=== PATIENT | female | born 1935 | race Caucasian/White ===

== ENCOUNTER 2016-05-11 20:18 | Emergency (ER) | payer OTHER ==
[~2016-05-11] VITALS: Ht 157.5 cm; Wt 59.5 kg
[~2016-05-11 20:18] MED LIST: ACET1TAB40 PO; ALBU8.5H5 INH; ERYT1OIN6 RIGHT EYE; GABA100C14 PO; GENT5DRO28 RIGHT EYE; IBUP-1542 PO; LEVO50TA64; LOSA50TA6 PO; MTF1000T PO; OSLT75C PO; TRAM50TA2 PO; TYL500 PO; ZOC10 PO
[2016-05-11 20:55] VITALS: Ht 157.5 cm; Wt 59.5 kg
[2016-05-11] MEDS ORDERED: ACETAMINOPHEN 500 MG TAB PO STA (22:06)
--- NOTE | 2016-05-11 23:28 | ERD ---
ER Documentation Chief Complaint Date/Time DATE: 05/11/16 TIME: 23:26 Chief Complaint cough x 2 weeks HPI Patient is an 81-year-old female with a history of diabetes, hypertension, hypothyroidism, high cholesterol and arthritis who presents to the ED with cough for 2 weeks. Denies hemoptysis, night sweats, fever or chills. Complains of a productive cough. Has been taking Tylenol and a [place] cough syrup with minimal relief. Denies chest pain, shortness of breath or difficulty breathing. Denies abdominal pain, nausea, vomiting or diarrhea. Denies headache or dizziness. ROS All systems reviewed and are negative except as per history of present illness. Medications Home Meds Active Scripts Benzonatate* (Tessalon Perle*) 100 Mg Capsule, 100 MG PO Q8H Y for COUGH for 14 Days, CAP Prov:SAM SALMERON PA-C 05/11/16 Azithromycin* (Zithromax*) 250 Mg Tablet, 250 MG PO .ZPACK DIRECTED, #6 TAB TAKE 500 MG (2 TABS) THE FIRST DAY THEN 250 MG (1 TAB) DAYS 2-5 Prov:SAM SALMERON PA-C 05/11/16 Erythromycin (Erythromycin Opth) 3.5 Gm Oint..gm., 1 APPLIC RIGHT EYE QID for 7 Days, #1 TUB Prov:KRISTAN LEONARD MD 10/24/15 Acetaminophen-Codeine* (Acetaminophen-Cod #3*) 300-30 Mg Tab, 1 TAB PO Q4H Y for PAIN, #12 TAB Prov:KRISTAN LEONARD MD 10/24/15 Tramadol HCl (Tramadol HCl) 50 Mg Tablet, 50 MG PO Q4 Y for PAIN, #20 TAB Prov:KRISTAN LEONARD MD 10/18/15 Gentamicin Sulfate* (Gentamicin Sulfate* Ophth) 0.3% - 5 Ml Drops, 1 DROP RIGHT EYE Q4 for 7 Days, EA Prov:KRISTAN LEONARD MD 10/18/15 Oseltamivir Phosphate* (Tamiflu*) 75 Mg Capsule, 75 MG PO BID for 5 Days, CAP Prov:RICH FLOR MD 02/05/15 Albuterol Sulfate* (Albuterol Sulfate* HFA) 8.5 Gm Hfa.aer.ad, 1-2 PUFF INH Q4 Y for SHORTNESS OF BREATH, #1 EA Prov:RICH FLOR MD 02/05/15 Ibuprofen* (Ibuprofen*) 600 Mg Tablet, 400 MG PO TID for PAIN, #30 TAB Prov:RICH FLOR MD 02/05/15 Reported Medications Acetaminophen* (Tylenol*) 500 Mg Tab, 500 MG PO Q4H Y for MILD PAIN LEVEL 1-3, TAB 10/23/13 Losartan Potassium* (Losartan Potassium*) 50 Mg Tablet, 50 MG PO DAILY, TAB 10/23/13 Metformin* (Glucophage*) 1,000 Mg Tablet, 1000 MG PO BID 04/08/12 Gabapentin* (Gabapentin*) 100 Mg Capsule, 100 MG PO BID 04/08/12 Simvastatin (Simvastatin) 10 Mg Tablet, 10 MG PO 12/19/11 Levothyroxine Sodium (Levothroid) 50 Mcg Tablet 08/03/09 Allergies Allergies: Coded Allergies: Penicillins (Verified Allergy, Mild, 04/08/12) PMhx/Soc History of Surgery: Yes (bilateral eyes cataract) Anesthesia Reaction: No Hx Neurological Disorder: No Hx Respiratory Disorders: No Hx Psychiatric Problems: No Hx Alcohol Use: No Hx Substance Use: No Hx Tobacco Use: No Smoking Status: Never smoker FmHx Family History: No coronary disease, No diabetes, No other Physical Exam Vitals Vital Signs Date Time Temp Pulse Resp B/P Pulse Ox O2 Delivery O2 Flow Rate FiO2 05/11/16 20:55 97.5 83 20 167/72 96 Physical Exam GENERAL: Well-developed, well-nourished female. Appears in no acute distress. HEAD: Normocephalic, atraumatic. EYES: Pupils are equally reactive bilaterally. EOMs grossly intact. No conjunctival erythema. ENT: Moist mucous membranes. No uvula deviation. No kissing tonsils. No exudates. NECK: Supple. No lymphadenopathy or thyromegaly. No meningismus. negative kernig. negative brudinski. No retractions or nasal flaring. Patient speaking in full sentences LUNG: Clear to auscultation bilaterally. No rhonchi, wheezing, rales or coarse breath sounds. HEART: Regular rate and rhythm. No murmurs, rubs or gallops. ABDOMEN: No scars, ecchymosis or rashes noted. Soft, nontender, and nondistended. Positive bowel sounds in all four quadrants. No rebound tenderness , no guarding. (-) McBurneys point tenderness. No CVA tenderness. BACK: No midline tenderness. Extremities: Equal pulses bilaterally. No peripheral clubbing, cyanosis or edema. No unilateral leg swelling. NEUROLOGIC: Alert and oriented. Moving all four extremities. 5/5 strength in all extremities. Normal speech. Steady gait. SKIN: Normal color. Warm and dry. No rashes or lesions. Capillary refill < 2 seconds Results 24 hrs Current Medications Medications (Trade) Dose Ordered Sig/Scot Route PRN Reason Start Time Stop Time Status Last Admin Dose Admin Acetaminophen (Tylenol Tab) 500 mg ONCE STAT PO 05/11/16 22:06 05/11/16 22:07 DC 05/11/16 22:13 Procedures/MDM ER COURSE: I kept the patient and/or family informed of laboratory and diagnostic imaging results throughout the emergency room course. EKG, MONITORS, & DIAGNOSTIC IMAGING: [place] [id number] Radiology Main Line: [phone] DIAGNOSTIC IMAGING REPORT Patient: BOWEN ADAMS : 1935 Age: 81 Sex: F MR #: [id number] DOS: 05/11/162205 Ordering MD: SAM SALMERON PA-C Location: [facility] Room/Bed: PROCEDURE: XR Chest. CLINICAL INDICATION: Cough and fever TECHNIQUE: AP Portable chest. COMPARISON: 02/05/2015 FINDINGS: Some mild patchy airspace opacities are seen bilaterally in the mid to lower lung zones. There is mild cardiomegaly. The osseous structures are unremarkable. IMPRESSION: Minimal patchy opacities within the lower lung zones possibly due to infection. RPTAT: HIKT .Korey Weinstein MD, Date Time Electronically viewed and signed by .Korey Weinstein MD, on 05/11/2016 23:29 .T/ CC: SAM SALMERON PA-C MEDICAL DECISION MAKING: This is a 81 year old female who presents with cough x 2 weeks. Vital signs were reviewed. Patient is afebrile. Patient is not hypoxic. Patient is not toxic or ill appearing. She likely has pneumonia. I have consulted with Dr. Garcia regarding her results and who has agreed with plan. Low suspicion forPE , pneumothorax, ACS, epiglottitis, obstruction, TB, pertussis, meningitis, sepsis. Patient does not show signs of respiratory distress. O2 sat is 96. And patient is afebrile. I will be sending the patient with Zithromax. I do not think patient needs to be admitted at this time or needs IV hydration. Low suspicion for ACS, PE, AAA, dissection, DVT DISCHARGE: At this time, patient is stable for discharge and outpatient management with no new complaints during the ER course. Patient was sent home with Zithromax and Mando Espinoza. Patient will be discharged home with instructions to recheck for new or worsening symptoms such as fever, nausea, weakness, LOC and to follow up with primary care in the next 1-2 days. Patient was advised to return to the ER for any new or worsening symptoms. Plan was discussed and patient and/ or family understands and agrees. Home instructions were given. Departure Diagnosis: Primary Impression: Cough Condition: Stable SAM SALMERON PA-C May 11, 2016 23:28
--- NOTE | 2016-05-11 23:29 | RADRPT ---
PROCEDURE: XR Chest. CLINICAL INDICATION: Cough and fever TECHNIQUE: AP Portable chest. COMPARISON: 02/05/2015 FINDINGS: Some mild patchy airspace opacities are seen bilaterally in the mid to lower lung zones. There is m ild cardiomegaly. The osseous structures are unremarkable. IMPRESSION: Minimal patchy opacities within the lower lung zones possibly due to infection. RPTAT: HIKT .Korey Weinstein MD, MD Date Time Electronically viewed and signed by .Korey Weinstein MD, on 05/11/2016 23:29 .T/
[2016-05-11] MEDS ORDERED: AZIT250T94 PO (23:38)
[2016-05-11] MEDS ORDERED: BENZ100C70 PO (23:41)
[2016-05-12 00:15] VITALS: BP 110/58; PULSE 78; RESP 18; TEMP 98.1
== END 2016-05-12 00:18 | disposition home or self-care (01) ==
LOC: FTE 20:18
DX: R05 Cough (principal); E11.9 Type 2 diabetes mellitus without complications; I10 Essential (primary) hypertension; E03.9 Hypothyroidism, unspecified; Z79.84 Long term (current) use of oral hypoglycemic drugs
CPT/HCPCS: 71010; Z7610

== ENCOUNTER 2016-11-19 11:42 | Inpatient (IN) | payer OTHER ==
[~2016-11-19] VITALS: Ht 152.4 cm; Wt 58.0 kg
[~2016-11-19 11:42] MED LIST changes: +AZIT250T94 PO; +BENZ100C70 PO
[2016-11-19] MEDS ORDERED: ASPIRIN 325 MG TAB PO STA (12:56)
[2016-11-19] MEDS ORDERED: NITROGLYCERIN 2% 1 GM OINT PKT TD STA (12:56)
[2016-11-19 13:13] LABS: BASOPHILS % 0.3 % (0.0-2.0); EOSINOPHILS # 0.1 10^3/ul (0.0-0.5); EOSINOPHILS % 0.8 % (0.0-7.0); HEMATOCRIT 35.8 % (37.0-47.0); HEMOGLOBIN 12.3 g/dl (12.0-16.0); LYMPHOCYTES # 2.1 10^3/ul (0.8-2.9); LYMPHOCYTES % 34.4 % (15.0-51.0); MEAN CORPUSCULAR HEMOGLOBIN 31.7 pg (29.0-33.0); MEAN CORPUSCULAR HGB CONC 34.4 g/dl (32.0-37.0); MEAN CORPUSCULAR VOLUME 92.3 fl (82.0-101.0); MEAN PLATELET VOLUME 9.5 fl (7.4-10.4); MONOCYTE # 0.4 10^3/ul (0.3-0.9); MONOCYTES % 6.2 % (0.0-11.0); NEUTROPHIL # 3.6 10^3/ul (1.6-7.5); NEUTROPHILS % 58.1 % (39.0-77.0); PLATELET COUNT 268 10^3/UL (140-415); RED BLOOD COUNT 3.88 10^6/ul (4.20-5.40); RED CELL DISTRIBUTION WIDTH 11.5 % (11.5-14.5); WHITE BLOOD COUNT 6.2 10^3/ul (4.8-10.8)
[2016-11-19] MEDS ORDERED: INSULIN REGULAR 10 ML INJ SC ONE (13:30)
[2016-11-19] MEDS ORDERED: INSULIN REGULAR, HUMAN 100 UNIT/1 ML 3ML VIAL SC ONE (13:30)
[2016-11-19] MEDS ORDERED: LOSA50TA6 PO (13:39)
[2016-11-19] MEDS ORDERED: LEVO50TA74 PO (13:39)
[2016-11-19] MEDS ORDERED: SIMV10TA PO (13:40)
[2016-11-19] MEDS ORDERED: ASPI-664 PO (13:40)
[2016-11-19] MEDS ORDERED: METF500T4 PO (13:40)
[2016-11-19 13:41] LABS: ALANINE AMINOTRANSFERASE 38 IU/L (13-69); ALBUMIN 4.1 g/dl (3.3-4.9); ALBUMIN/GLOBULIN RATIO 1.05; ALKALINE PHOSPHATASE 247 IU/L (42-121); ANION GAP 20 (8-16); ASPARTATE AMINO TRANSFERASE 23 IU/L (15-46); BILIRUBIN,INDIRECT 0.3 mg/dl (0-1.1); BILIRUBIN,TOTAL 0.3 mg/dl (0.2-1.3); BLOOD UREA NITROGEN 23 mg/dl (7-20); CALCIUM 9.8 mg/dl (8.4-10.2); CARBON DIOXIDE 28 mmol/L (21-31); CHLORIDE 94 mmol/L (97-110); CREATININE 0.71 mg/dl (0.44-1.00); POTASSIUM 4.6 mmol/L (3.5-5.1); SODIUM 137 mmol/L (135-144)
[2016-11-19] MEDS ORDERED: GLIM2TAB PO (13:41)
[2016-11-19] MEDS ORDERED: HYDR12.58 PO (13:41)
[2016-11-19] MEDS ORDERED: CALC-267 PO (13:42)
[2016-11-19 13:44] LABS: GLUCOSE 476 mg/dl (70-220)
[2016-11-19 13:49] LABS: B-TYPE NATRIURETIC PEPTIDE 274 PG/ML (0-450)
[2016-11-19 13:54] LABS: TROPONIN-I < 0.012 ng/ml (0.00-0.12)
--- NOTE | 2016-11-19 14:07 | ERA ---
ER Documentation Chief Complaint Date/Time DATE: 11/19/16 TIME: 14:03 Chief Complaint DIZZINESS X4 DAYS, CHEST PAIN TODAY, NO N/V, NO SOB HPI This is a 81-year-old female complains of one-week history of exertional angina described as a chest pressure with shortness of breath and dizziness. She says when she walks starting to get more frequent chest pain. The patient has to stop walking and rest and his chest pain resolved. Patient says that the chest pain is getting more frequent and lasting longer, taking longer to resolve. Patient has a history of diabetes, hypertension, high cholesterol. No evidence of prior history of coronary disease. The patient is currently chest pain-free ROS All systems reviewed and are negative except as per history of present illness. Medications Home Meds Reported Medications Calc/D3/Mag/Zn/Assistant Account Executive/Vish/[place] (Calcium 600 + Vit D) 1 Each Tablet, 1 TAB PO BID , TAB 11/19/16 Hydrochlorothiazide* (Hydrochlorothiazide*) 12.5 Mg Tablet, 12.5 MG PO DAILY, # 30 TAB 11/19/16 Glimepiride* (Glimepiride*) 2 Mg Tablet, 2 MG PO WITH BREAKFAST, TAB 11/19/16 Aspirin* (Aspirin* EC) 81 Mg Tablet.dr, 81 MG PO DAILY, TAB 11/19/16 Simvastatin* (Zocor*) 10 Mg Tablet, 10 MG PO QHS, #30 TAB 11/19/16 Metformin Hcl* (Metformin Hcl*) 500 Mg Tablet, 500 MG PO WITH BREAKFAST DINNE, # 60 TAB 11/19/16 Losartan Potassium* (Losartan Potassium*) 50 Mg Tablet, 50 MG PO DAILY, TAB 11/19/16 Levothyroxine Sodium* (Levothyroxine Sodium*) 50 Mcg Tablet, 50 MCG PO BEFORE BREAKFAST, #30 TAB 11/19/16 Discontinued Reported Medications Acetaminophen* (Tylenol*) 500 Mg Tab, 500 MG PO Q4H Y for MILD PAIN LEVEL 1-3, TAB 10/23/13 Losartan Potassium* (Losartan Potassium*) 50 Mg Tablet, 50 MG PO DAILY, TAB 10/23/13 Metformin* (Glucophage*) 1,000 Mg Tablet, 1000 MG PO BID 04/08/12 Gabapentin* (Gabapentin*) 100 Mg Capsule, 100 MG PO BID 04/08/12 Simvastatin (Simvastatin) 10 Mg Tablet, 10 MG PO 9/4/12 Levothyroxine Sodium (Levothroid) 50 Mcg Tablet 08/03/09 Discontinued Scripts Benzonatate* (Tessalon Perle*) 100 Mg Capsule, 100 MG PO Q8H Y for COUGH for 14 Days, CAP Prov:SAM SALMERON PA-C 05/11/16 Azithromycin* (Zithromax*) 250 Mg Tablet, 250 MG PO .ZPACK DIRECTED, #6 TAB TAKE 500 MG (2 TABS) THE FIRST DAY THEN 250 MG (1 TAB) DAYS 2-5 Prov:SAM SALMERON PA-C 05/11/16 Erythromycin (Erythromycin Opth) 3.5 Gm Oint..gm., 1 APPLIC RIGHT EYE QID for 7 Days, #1 TUB Prov:KRISTAN LEONARD MD 10/24/15 Acetaminophen-Codeine* (Acetaminophen-Cod #3*) 300-30 Mg Tab, 1 TAB PO Q4H Y for PAIN, #12 TAB Prov:KRISTAN LEONARD MD 10/24/15 Tramadol HCl (Tramadol HCl) 50 Mg Tablet, 50 MG PO Q4 Y for PAIN, #20 TAB Prov:KRISTAN LEONARD MD 10/18/15 Gentamicin Sulfate* (Gentamicin Sulfate* Ophth) 0.3% - 5 Ml Drops, 1 DROP RIGHT EYE Q4 for 7 Days, EA Prov:KRISTAN LEONARD MD 10/18/15 Oseltamivir Phosphate* (Tamiflu*) 75 Mg Capsule, 75 MG PO BID for 5 Days, CAP Prov:RICH FLOR MD 02/05/15 Albuterol Sulfate* (Albuterol Sulfate* HFA) 8.5 Gm Hfa.aer.ad, 1-2 PUFF INH Q4 Y for SHORTNESS OF BREATH, #1 EA Prov:RICH FLOR MD 02/05/15 Ibuprofen* (Ibuprofen*) 600 Mg Tablet, 400 MG PO TID for PAIN, #30 TAB Prov:RICH FLOR MD 02/05/15 Allergies Allergies: Coded Allergies: Penicillins (Verified Allergy, Mild, 11/19/16) PMhx/Soc History of Surgery: Yes (bilateral eyes cataract) Anesthesia Reaction: No Hx Neurological Disorder: No Hx Respiratory Disorders: No Hx Psychiatric Problems: No Hx Miscellaneous Medical Probl: Yes (DM, High Cholesterol, Thyroid) Hx Alcohol Use: No Hx Substance Use: No Hx Tobacco Use: No Smoking Status: Never smoker FmHx Family History: No coronary disease Physical Exam Vitals Vital Signs Date Time Temp Pulse Resp B/P Pulse Ox O2 Delivery O2 Flow Rate FiO2 11/19/16 15:00 73 19 148/76 99 Room Air 11/19/16 13:00 Nasal Cannula 2 11/19/16 11:44 97.3 87 18 203/90 96 Physical Exam Const: Well-developed, well-nourished Head: Atraumatic, normocephalic Eyes: Normal Conjunctiva, PERRLA, EOMI, normal sclera, no nystagmus ENT: Normal External Ears, Nose and Mouth, moist mucus membranes. Neck: Full range of motion. No meningismus, no lymphadenopathy. Resp: Clear to auscultation bilaterally, no wheezing, rhonchi, rales Cardio: Regular rate and rhythm, no murmurs, S1 S2 present Abd: Soft, non tender x 4, non distended. Normal bowel sounds, no guarding or rebound, no pulsitile abdominal masses or bruits Skin: No petechiae or rashes, no ecchymosis , no maculopapular rash Back: No midline or flank tenderness Ext: No cyanosis, or edema, FROM x 4, normal inspection, neurovascularly intact x 4 Neur: Awake and alert, STR 5/5 x 4, sensation intact x 4, no focal findings, cerebellum intact Psych: Normal Mood and Affect Result Diagram: 11/19/16 1259 11/19/16 1259 Results 24 hrs Laboratory Tests Test 11/19/16 12:42 11/19/16 12:59 Bedside Glucose 477mg/dL White Blood Count 6.210^3/ul Red Blood Count 3.8810^6/ul Hemoglobin 12.3g/dl Hematocrit 35.8% Mean Corpuscular Volume 92.3fl Mean Corpuscular Hemoglobin 31.7pg Mean Corpuscular Hemoglobin Concent 34.4g/dl Red Cell Distribution Width 11.5% Platelet Count 96826^3/UL Mean Platelet Volume 9.5fl Neutrophils % 58.1% Lymphocytes % 34.4% Monocytes % 6.2% Eosinophils % 0.8% Basophils % 0.3% Nucleated Red Blood Cells % 0.0/100WBC Neutrophils # 3.610^3/ul Lymphocytes # 2.110^3/ul Monocytes # 0.410^3/ul Eosinophils # 0.110^3/ul Basophils # 0.010^3/ul Nucleated Red Blood Cells # 0.010^3/ul Sodium Level 137mmol/L Potassium Level 4.6mmol/L Chloride Level 94mmol/L Carbon Dioxide Level 28mmol/L Anion Gap 20 Blood Urea Nitrogen 23mg/dl Creatinine 0.71mg/dl Glucose Level 476mg/dl Calcium Level 9.8mg/dl Total Bilirubin 0.3mg/dl Direct Bilirubin 0.00mg/dl Indirect Bilirubin 0.3mg/dl Aspartate Amino Transf (AST/SGOT) 23IU/L Alanine Aminotransferase (ALT/SGPT) 38IU/L Alkaline Phosphatase 247IU/L Troponin I < 0.012ng/ml B-Type Natriuretic Peptide 274PG/ML Total Protein 8.0g/dl Albumin 4.1g/dl Globulin 3.90g/dl Albumin/Globulin Ratio 1.05 Current Medications Medications (Trade) Dose Ordered Sig/Scot Route PRN Reason Start Time Stop Time Status Last Admin Dose Admin Aspirin (Aspirin) 325 mg ONCE STAT PO 11/19/16 12:56 11/19/16 12:57 DC 11/19/16 13:06 Nitroglycerin (Nitroglycerin 2% Oint) 1 inch ONCE STAT TD 11/19/16 12:56 11/19/16 12:57 DC 11/19/16 13:06 Insulin Human Regular (Novolin-R) 10 unit ONCE ONCE SC 11/19/16 13:30 11/19/16 13:30 DC Insulin Human Regular (Humulin R) 10 unit ONCE ONCE SC 11/19/16 13:30 11/19/16 13:31 DC 11/19/16 13:28 Procedures/MDM EKG: Rate/Rhythm: Normal Sinus Rhythm,NL intervals QRS, ST, QT: NORMAL FL, QRS, QT Impression: NORMAL EKG PROCEDURE: XR Chest. CLINICAL INDICATION: Chest pain TECHNIQUE: Single frontal chest x-ray. COMPARISON: None. FINDINGS: There is mild bibasilar atelectasis. No acute infiltrate, pleural effusion or pneumothorax is identified. There is stable mild cardiomegaly. Aortic atherosclerotic calcification is noted. The osseous structures are unremarkable. IMPRESSION: 1. Stable mild cardiomegaly and aortic atherosclerosis. 2. No evidence of acute cardiopulmonary process. RPTAT: PP .Ean Castillo MD, Date Time Electronically viewed and signed by .Ean Castillo MD, on 11/19/2016 14: 15 .R/ CC: EJ MERINO DO Patient is exhibiting some exertional anginal symptoms. Patient's symptoms are concerning for cardiac cause will require inpatient workup and continuous monitoring. Further w/u for ischemia, arrhythmia, PE or dissection will be deferred to the inpatient team. Accepting Care Team: Current data and ongoing care discussed. Time: Time of admission Primary Provider: [XOXOXO] Consulting: [XOXOXO] Outstanding Data: none Departure Diagnosis: Primary Impression: Chest pain Qualified Code: R07.9 - Chest pain, unspecified type Condition: Stable EJ MERINO DO Nov 19, 2016 14:07
--- NOTE | 2016-11-19 14:15 | RADRPT ---
PROCEDURE: XR Chest. CLINICAL INDICATION: Chest pain TECHNIQUE: Single frontal chest x-ray. COMPARISON: None. FINDINGS: There is mild bibasilar atelectasis. No acute infiltrate, pleural effusion or pneumothorax is ident ified. There is stable mild cardiomegaly. Aortic atherosclerotic calcification is noted. The osse ous structures are unremarkable. IMPRESSION: 1. Stable mild cardiomegaly and aortic atherosclerosis. 2. No evidence of acute cardiopulmonary process. RPTAT: PP .Ean Castillo MD, MD Date Time Electronically viewed and signed by .Ean Castillo MD, MD on 11/19/2016 14:15 .R/
[2016-11-19] MEDS ORDERED: ONDANSETRON 4 MG INJ IV PRN ×2 (16:00→18:00)
[2016-11-19] MEDS ORDERED: ACETAMINOPHEN 325 MG TAB PO PRN ×2 (16:00→18:00)
[2016-11-19 17:31] VITALS: BP 143/68; PULSE 72; RESP 18
[2016-11-19 17:47] VITALS: Ht 152.4 cm; Wt 58.0 kg
[2016-11-19 17:54] VITALS: PULSE 74
--- NOTE | 2016-11-19 17:57 | HP ---
Date/Time of Note Date/Time of Note DATE: 11/19/16 TIME: 17:51 Assessment/Plan VTE Prophylaxis VTE Prophylaxis Intervention: SCD's Lines/Catheters IV [facility] [place] Assessment/Plan Chief Complaint/Hosp Course Patient is a 81-year-old female who presents to [facility] with multiple complaints including chest pain and dizziness Problems and assessment Exertional chest pain Dizziness Fatigue Weakness Hypertension Dyslipidemia Diabetes, occasionally medical noncompliance Hypothyroidism Plan -Patient has multiple complaints and currently is not suffering from any of her complaints. However given her risk factors and a MISAEL score of 3-4, will trend troponins, echocardiogram and cardiology consult. Patient's daughter does state that there may be a remote possibility of a stress test earlier this year from [facility] [place], but not certain. Highly unlikely pulmonary embolism given well score of 0. -Patient's diabetes is uncontrolled at this time, may explain much of her symptoms. No acute kidney injury at this time, however BUN/creatinine ratio is consistent with possible prerenal azotemia, will fluid hydrate at this time, patient is not in DKA, urinalysis pending -Fluids -Continue home meds -Insulin for diabetes control -PT OT -Cardiology recommendations appreciated Problems: HPI/ROS Admit Date/Time Admit Date/Time Nov 19, 2016 at 15:55 Hx of Present Illness Patient is a 81-year-old female, history is obtained with the help of her daughter who is at bedside. Patient presents to the ED with the original complaint of exertional angina, however after speaking with the patient and the patient's daughter at length, there are multiple complaints. Patient states that over the past week or 2 there have been moments of temporary shortness of breath that are mild with chest pain that are shortly followed by a dizzy sensation. When asked how many times this happens, the patient is unsure but states that it happens 2-3 times a day in the past week. Currently the patient does not have any chest pain, dizziness, shortness of breath, nausea, vomiting, diarrhea. Patient also denies any bowel or bladder dysfunction or altered mental status. She also states that she has not been taking her diabetes medication recently because she does not feel well. Patient has no issues ambulating and is normally in fairly good health and sees a family doctor on a normal basis. PMH: Hypertension, dyslipidemia, diabetes mellitus type 2, cataracts, hypothyroidism PSH: None Social: Denies smoking, alcohol, recreational drugs Meds: Losartan 50 mg, simvastatin 10 mg, aspirin 81 mg, hydrochlorothiazide 12.5 mg, glimepiride 2 mg daily, levothyroxine 50 mcg, metformin 500 mg twice daily PMH/Family/Social Social History Smoking Status: Never smoker Exam/Review of Systems Vital Signs Vitals Vital Signs Date Time Temp Pulse Resp B/P Pulse Ox O2 Delivery O2 Flow Rate FiO2 11/19/16 17:31 98.2 72 18 143/68 95 Room Air 11/19/16 13:00 2 Exam Exam Physical exam General: Patient is laying in bed and answers questions appropriately Mentation: Patient is alert and oriented 4, Head: Normocephalic atraumatic Eyes: EOMI, pupils reactive to light Neck: Supple, nontender, midline Respiratory: Clear to auscultation bilaterally Cardiovascular: regular rate, no obvious murmurs Gastrointestinal: non-tender to palpation, bowel sounds heard. Neurological: Moves all extremities spontaneously, muscle 5/5 all extremities, no loss of sensation Skin: No new skin lesions Labs Result Diagram: 11/19/16 1259 11/19/16 1259 Medications Medications Current Medications Sodium Chloride (NS) 1,000 ml @ 80 mls/hr [id number] IV ; Start 11/19/16 at 17:31 Ondansetron HCl (Zofran Inj) 4 mg Q6H PRN IV NAUSEA AND/OR VOMITING; Start 11/19 at 18:00 Acetaminophen (Tylenol Tab) 650 mg Q6H PRN PO PAIN LEVEL 1-3 OR FEVER; Start at 18:00 Acetaminophen/ Hydrocodone Bitart ([place] (5/325)) 1 tab Q6H PRN PO PAIN LEVEL 7 -10; Start 11/19/16 at 18:00 Bisacodyl (Dulcolax) 5 mg DAILY PRN PO CONSTIPATION; Start 11/19/16 at 18:00 Diagnostic Test (Pha) (Accu-Chek) 1 ea 02 XX ; Start 11/20/16 at 02:00 Insulin Glargine (Lantus) 12 unit DAILY@08 SC ; Start 11/20/16 at 08:00 Aspirin (Halfprin) 81 mg DAILY PO ; Start 11/20/16 at 09:00 Losartan Potassium (Cozaar) 50 mg DAILY PO ; Start 11/20/16 at 09:00 Atorvastatin Calcium (Lipitor) 10 mg QHS PO ; Start 11/19/16 at 21:00 Hydrochlorothiazide (Hydrochlorothiazide) 12.5 mg DAILY PO ; Start 11/20/16 at 09 :00 Miscellaneous Information 1 ea NOTE XX ; Start 11/19/16 at 18:00 Glucose (Glutose) 15 gm Q15M PRN PO DECREASED GLUCOSE; Start 11/19/16 at 18:00 Glucose (Glutose) 22.5 gm Q15M PRN PO DECREASED GLUCOSE; Start 11/19/16 at 18:00 Dextrose (D50w Syringe) 25 ml Q15M PRN IV DECREASED GLUCOSE; Start 11/19/16 at 18:00 Dextrose (D50w Syringe) 50 ml Q15M PRN IV DECREASED GLUCOSE; Start 11/19/16 at 18:00 Glucagon (Glucagen) 1 mg Q15M PRN IM DECREASED GLUCOSE; Start 11/19/16 at 18:00 Glucose (Glutose) 15 gm Q15M PRN BUCCAL DECREASED GLUCOSE; Start 11/19/16 at 18: 00 RICH GALVAN Nov 19, 2016 17:57
[2016-11-19] MEDS ORDERED: BISACODYL (EC) 5 MG TAB PO PRN (18:00)
[2016-11-19] MEDS ORDERED: ALBUTEROL/IPRATROPIUM (NEB) 3 ML AMP HHN PRN (18:00)
[2016-11-19] MEDS ORDERED: GLUCOSE GEL 15 GRAM TUBE PO PRN ×2 (18:00)
[2016-11-19] MEDS ORDERED: DEXTROSE 50% 50 ML SYRINGE IV PRN ×2 (18:00)
[2016-11-19] MEDS ORDERED: GLUCOSE GEL 15 GRAM TUBE BUCCAL PRN (18:00)
[2016-11-19] MEDS ORDERED: GLUCAGON 1 MG INJ IM PRN (18:00)
[2016-11-19] MEDS ORDERED: HYDROCODONE/APAP (5/325) TAB PO PRN (18:00)
[2016-11-19] MEDS ORDERED: NACL 0.9% 3 ML SYG IV SCH (18:00)
[2016-11-19] MEDS: SOD CHLORIDE 0.9% 1,000 ML IV SCH (18:04)
[2016-11-19] MEDS ORDERED: hydrALAzine 20 MG INJ IV PRN (18:30)
[2016-11-19] MEDS: INSULIN ASPART [NOVOLOG] 3 ML PEN SC SCH ×3 (19:44→22:36)
[2016-11-19 20:17] VITALS: PULSE 70
[2016-11-19] MEDS: ATORVASTATIN 10 MG TAB PO SCH (20:18)
[2016-11-19 20:56] VITALS: BP 121/57; RESP 16
[2016-11-20] VITALS (13 sets, daily range): BP systolic 107–144; BP diastolic 56–69; PULSE 63–72; RESP 16–20
[2016-11-20] MEDS: ACCU-CHEK XX SCH (02:00)
[2016-11-20] MEDS: SOD CHLORIDE 0.9% 1,000 ML IV SCH (05:23)
[2016-11-20] MEDS: LEVOTHYROXINE 50 MCG TAB PO SCH (06:09)
[2016-11-20 06:35] LABS: BASOPHILS % 0.3 % (0.0-2.0); EOSINOPHILS # 0.1 10^3/ul (0.0-0.5); EOSINOPHILS % 1.4 % (0.0-7.0); HEMATOCRIT 33.4 % (37.0-47.0); HEMOGLOBIN 11.5 g/dl (12.0-16.0); LYMPHOCYTES # 3.3 10^3/ul (0.8-2.9); LYMPHOCYTES % 43.3 % (15.0-51.0); MEAN CORPUSCULAR HEMOGLOBIN 31.9 pg (29.0-33.0); MEAN CORPUSCULAR HGB CONC 34.4 g/dl (32.0-37.0); MEAN CORPUSCULAR VOLUME 92.8 fl (82.0-101.0); MEAN PLATELET VOLUME 9.6 fl (7.4-10.4); MONOCYTE # 0.5 10^3/ul (0.3-0.9); MONOCYTES % 5.8 % (0.0-11.0); NEUTROPHIL # 3.8 10^3/ul (1.6-7.5); NEUTROPHILS % 48.9 % (39.0-77.0); PLATELET COUNT 265 10^3/UL (140-415); RED CELL DISTRIBUTION WIDTH 11.5 % (11.5-14.5); WHITE BLOOD COUNT 7.7 10^3/ul (4.8-10.8)
[2016-11-20 06:58] LABS: ALBUMIN 3.2 g/dl (3.3-4.9); ALBUMIN/GLOBULIN RATIO 1.06; BILIRUBIN,INDIRECT 0.3 mg/dl (0-1.1); BILIRUBIN,TOTAL 0.3 mg/dl (0.2-1.3); CALCIUM 8.5 mg/dl (8.4-10.2); CHOL/HDL RATIO 5.1 RATIO; CREATININE 0.62 mg/dl (0.44-1.00); POTASSIUM 4.3 mmol/L (3.5-5.1); TOTAL PROTEIN 6.2 g/dl (6.1-8.1)
[2016-11-20 07:11] LABS: T3 UPTAKE 41.3 % (23.5-40.5)
[2016-11-20 07:25] LABS: THYROID STIMULATING HORMONE 4.19 MIU/L (0.465-4.680)
[2016-11-20] MEDS: INSULIN GLARGINE [LANtus] 3 ML PEN SC SCH (08:14)
[2016-11-20] MEDS: INSULIN ASPART [NOVOLOG] 3 ML PEN SC SCH ×7 (08:16→20:54)
[2016-11-20] MEDS: HYDROCHLOROTHIAZIDE 12.5 MG CAP PO SCH (08:21)
[2016-11-20] MEDS: LOSARTAN 50 MG TAB PO SCH (08:21)
[2016-11-20] MEDS: ASPIRIN (EC) 81 MG TAB PO SCH (08:21)
[2016-11-20 11:29] LABS: ADD UMIC YES; UR ASCORBIC ACID NEGATIVE (NEGATIVE); UR BACTERIA MANY /HPF (NONE SEEN); UR BILIRUBIN (Dip) NEGATIVE (NEGATIVE); UR BLOOD (Dip) 1+ mg/dL (NEGATIVE); UR BUDDING YEAST FEW /HPF (NONE SEEN); UR CLARITY CLOUDY (CLEAR); UR COLOR YELLOW (YELLOW); UR GLUCOSE (Dip) 3+ mg/dL (NEGATIVE); UR KETONES (Dip) TRACE mg/dL (NEGATIVE); UR LEUKOCYTE ESTERASE (Dip) 3+ Leu/ul (NEGATIVE); UR MUCUS MODERATE /HPF (NONE SEEN); UR NITRITE (Dip) POSITIVE (NEGATIVE); UR RBC 46 /HPF (0-5); UR SPECIFIC GRAVITY (Dip) 1.013 (1.003-1.030); UR SQUAMOUS EPITHELIAL CELL FEW /HPF (FEW); UR TOTAL PROTEIN (Dip) NEGATIVE (NEGATIVE); UR UROBILINOGEN (Dip) NEGATIVE (NEGATIVE)
--- NOTE | 2016-11-20 14:28 | PN ---
Date/Time of Note Date/Time of Note DATE: 11/20/16 TIME: 14:27 Assessment/Plan VTE Prophylaxis VTE Prophylaxis Intervention: SCD's Lines/Catheters IV Catheter Type (from Nrsg): Peripheral IV Urinary Cath still in place: No Assessment/Plan Assessment/Plan 81 yo F with HTN, DM2 with poor control admitted for chest pain, no evidence of ACS PLAN #chest pain: cards eval for stress test #DM2: stop PO meds, uptriate to insulin given a1c 12s #HTN: cont home BP meds PT advising HH, CM consult placed discharge pending cards eval Subjective 24 Hr Interval Summary Free Text/Dictation pt states chest pain has resolved regarding poor DM control, pt has not been checking BGs at home but does report medication adherence (of note, language line used to facilitate communication) Exam/Review of Systems Vital Signs Vitals Vital Signs Date Time Temp Pulse Resp B/P Pulse Ox O2 Delivery O2 Flow Rate FiO2 11/20/16 12:12 67 11/20/16 11:36 98.3 20 107/56 95 11/19/16 17:31 Room Air 11/19/16 13:00 2 Intake and Output 11/19/16 11/19/16 11/20/16 15:00 23:00 07:00 Intake Total 1200 ml Balance 1200 ml Exam nad, laying in bed no mrg lungs clear abd soft no rashes a1c 12 Results Result Diagram: 11/20/16 0550 11/20/16 0550 Results 24 hrs Laboratory Tests Test 11/19/16 18:11 11/19/16 18:26 11/19/16 22:29 11/20/16 00:45 Troponin I < 0.012 < 0.012 Bedside Glucose 204 206 Test 11/20/16 02:16 11/20/16 05:50 11/20/16 08:09 11/20/16 11:00 Bedside Glucose 170 273 H White Blood Count 7.7 # Red Blood Count 3.60 L Hemoglobin 11.5 L Hematocrit 33.4 L Mean Corpuscular Volume 92.8 Mean Corpuscular Hemoglobin 31.9 Mean Corpuscular Hemoglobin Concent 34.4 Red Cell Distribution Width 11.5 Platelet Count 265 Mean Platelet Volume 9.6 Neutrophils % 48.9 Lymphocytes % 43.3 Monocytes % 5.8 Eosinophils % 1.4 Basophils % 0.3 Nucleated Red Blood Cells % 0.0 Neutrophils # 3.8 Lymphocytes # 3.3 H Monocytes # 0.5 Eosinophils # 0.1 Basophils # 0.0 Nucleated Red Blood Cells # 0.0 Sodium Level 139 Potassium Level 4.3 Chloride Level 99 Carbon Dioxide Level 27 Anion Gap 17 H Blood Urea Nitrogen 22 H Creatinine 0.62 Glucose Level 215 # Hemoglobin A1c 12.4 H Calcium Level 8.5 Total Bilirubin 0.3 Direct Bilirubin 0.00 Indirect Bilirubin 0.3 Aspartate Amino Transf (AST/SGOT) 48 H Alanine Aminotransferase (ALT/SGPT) 45 Alkaline Phosphatase 138 H Total Protein 6.2 # Albumin 3.2 L Globulin 3.00 Albumin/Globulin Ratio 1.06 Triglycerides Level 230 H Cholesterol Level 145 LDL Cholesterol, Calculated 71 HDL Cholesterol 28 L Cholesterol/HDL Ratio 5.1 Thyroid Stimulating Hormone (TSH) 4.190 Free Thyroxine Index 3.14 Thyroxine (T4) 7.6 Triiodothyronine (T3) Uptake 41.3 H Urine Color YELLOW Urine Clarity CLOUDY A Urine pH 5.0 Urine Specific [place] 1.013 Urine Ketones TRACE A Urine Nitrite POSITIVE A Urine Bilirubin NEGATIVE Urine Urobilinogen NEGATIVE Urine Leukocyte Esterase 3+ H Urine Microscopic RBC 46 H Urine Microscopic WBC > 182 H Urine Squamous Epithelial Cells FEW Urine Bacteria MANY A Urine Mucus MODERATE Urine Yeast (Budding) FEW A Urine Hemoglobin 1+ H Urine Glucose 3+ H Urine Total Protein NEGATIVE Test 11/20/16 11:37 Bedside Glucose 264 H Medications Medications Current Medications Sodium Chloride (NS) 1,000 ml @ 80 mls/hr [id number] IV Last administered on 05:23; Admin Dose 80 MLS/HR; Start 11/19/16 at 17:31; Stop 11/20/16 at 18:30 Ondansetron HCl (Zofran Inj) 4 mg Q6H PRN IV NAUSEA AND/OR VOMITING; Start 11/19 at 18:00 Acetaminophen (Tylenol Tab) 650 mg Q6H PRN PO PAIN LEVEL 1-3 OR FEVER; Start at 18:00 Acetaminophen/ Hydrocodone Bitart ([place] (5/325)) 1 tab Q6H PRN PO PAIN LEVEL 7 -10 Last administered on 11/19/16 20:51; Admin Dose 1 TAB; Start 11/19/16 at 18: 00 Bisacodyl (Dulcolax) 5 mg DAILY PRN PO CONSTIPATION; Start 11/19/16 at 18:00 Diagnostic Test (Pha) (Accu-Chek) 1 ea 02 XX ; Start 11/20/16 at 02:00 Insulin Glargine (Lantus) 12 unit DAILY@08 SC Last administered on 11/20/16 08: 14; Admin Dose 12 UNIT; Start 11/20/16 at 08:00 Aspirin (Halfprin) 81 mg DAILY PO Last administered on 11/20/16 08:21; Admin Dose 81 MG; Start 11/20/16 at 09:00 Losartan Potassium (Cozaar) 50 mg DAILY PO Last administered on 11/20/16 08:21 ; Admin Dose 50 MG; Start 11/20/16 at 09:00 Atorvastatin Calcium (Lipitor) 10 mg QHS PO Last administered on 11/19/16 20:18 ; Admin Dose 10 MG; Start 11/19/16 at 21:00 Hydrochlorothiazide (Hydrochlorothiazide) 12.5 mg DAILY PO Last administered on 11/20/16 08:21; Admin Dose 12.5 MG; Start 11/20/16 at 09:00 Miscellaneous Information 1 ea NOTE XX ; Start 11/19/16 at 18:00 Glucose (Glutose) 15 gm Q15M PRN PO DECREASED GLUCOSE; Start 11/19/16 at 18:00 Glucose (Glutose) 22.5 gm Q15M PRN PO DECREASED GLUCOSE; Start 11/19/16 at 18:00 Dextrose (D50w Syringe) 25 ml Q15M PRN IV DECREASED GLUCOSE; Start 11/19/16 at 18:00 Dextrose (D50w Syringe) 50 ml Q15M PRN IV DECREASED GLUCOSE; Start 11/19/16 at 18:00 Glucagon (Glucagen) 1 mg Q15M PRN IM DECREASED GLUCOSE; Start 11/19/16 at 18:00 Glucose (Glutose) 15 gm Q15M PRN BUCCAL DECREASED GLUCOSE; Start 11/19/16 at 18: 00 Hydralazine HCl (Apresoline) 10 mg Q4H PRN IV SBP>160; Start 11/19/16 at 18:30 ANITA KENNEDY MD Nov 20, 2016 14:28
--- NOTE | 2016-11-20 14:46 | RADRPT ---
Echocardiogram Report Patient Name: BOWEN ADAMS Gender: Female Date: 1935 Study Date: 20-Nov-2016 [employer] Supervisor: Alexander Barkley [facility] Location: 5540 Ref. Physician: RICH GALVAN Quality: Adequate Procedures: Transthoracic echocardiogram with complete 2D, M-Mode, and doppler examination. Indications: Exertional angina. Dizziness. 2D/M Mode Doppler Measurement Value Normal Ranges Measurement Value Normal Ranges LVIDd 2D 3.4 3.5 - 5.6 cm AV Peak Fernando 1.2 m/sec LVIDs 2D 2.3 2.1 - 4.1 cm AV Peak PG 6.0 mmHg FS 2D 30.6 % LVOT Peak Fernando 1.1 m/sec LVPWd 2D 0.9 0.6 - 1.1 cm LVOT Peak PG 4.0 mmHg IVSd 2D 1.0 0.6 - 1.1 cm MV E Peak Fernando 0.7 m/sec IVS/LVPW 2D 1.0 MV A Peak Fernando 1.0 m/sec AoR Diam 2D 2.3 2.0 - 3.7 cm MV E/A 0.7 LA/Ao 2D 2 0 - 1 MV Decel Time 275 msec EDV 2D 38.3 cm3 MV E/A 0.7 ESV 2D 12.8 cm3 TR Peak Fernando 2.5 m/sec LA Dimen 2D 3.8 2.3 - 4.0 cm TR Peak PG 25.0 mmHg RVSP 28.0 mmHg Findings Left Ventricle: Normal left ventricular systolic function. Normal left ventricular cavity size. Normal left ventricular wall thickness. Ejection fraction is visually estimated at 6570 %. Tissue Doppler/Mitral Doppler indices are consistent with impaired relaxation (Stage I diastolic dysfunction). Right Ventricle: Normal right ventricular size. Normal right ventricular systolic function. Left Atrium: The left atrium is normal in size. Right Atrium: The right atrium is normal in size. Mitral Valve: Normal appearance of the mitral valve. Mild mitral annular calcification. Trace mitral regurgitation. Aortic Valve: No significant aortic stenosis or insufficiency. Aortic sclerosis without stenosis. Tricuspid Valve: Normal appearance of the tricuspid valve. Estimated peak PA systolic pressure 28 mmHg. There is trace tricuspid regurgitation. Pulmonic Valve: Pulmonic valve not well visualized. There is trace pulmonic regurgitation. Pericardium: Normal pericardium with no significant pericardial effusion. Aorta: Normal aortic root. IVC: Normal size and normal respiratory collapse consistent with normal right atrial pressure. Conclusions 1.The left ventricle is normal in size and systolic function. 2.Estimated left ventricular ejection fraction of 65-70%. 3.Grade 1 diastolic dysfunction. Electronically Signed By: Frankie Mancia 20-Nov-2016 14:45:37 -0700 Patient Name: BOWEN ADAMS Study Date: 20-Nov-2016 [id number]
--- NOTE | 2016-11-20 15:10 | CONS ---
Date/Time of Note Date/Time of Note DATE: 11/20/16 TIME: 15:03 Assessment/Plan Assessment/Plan Chief Complaint/Hosp Course Assessment: Chest pain - ruled out for myocardial infarction, echocardiogram showed normal LVEF 65-70% with grade 1 diastolic dysfunction Accelerated hypertension - blood pressures now improved Dyslipidemia Diabetes mellitus - poorly controlled, HgbA1c 12.4, management per primary team Hypothyroidism Abnormal urinalysis - possible urinary tract infection, management per primary team Possible medication noncompliance Recommendations: -given cardiac risk factors, will obtain Lexican SPECT -continue aspirin 81mg daily -continue statin -continue losartan 50mg daily and hydrochlorothiazide 12.5mg daily Problems: Consultation Date/Type/Reason Admit Date/Time Nov 19, 2016 at 15:55 Type of Consultation: Cardiology Reason for Consultation chest pain Hx of Present Illness The patient is an 81 year-old female who presents with multiple complaints including exertional chest pain, intermittent shortness of breath, and dizziness. She is unable to characterize her symptoms further. Symptoms have now resolved and she denies having any chest pain currently. On presentation, the blood pressure was elevated at 203/90 and glucose was elevated at 477. EKG showed normal sinus rhythm without acute ischemic changes. Troponins have been negative x 3. 14 point review of systems negative other than per HPI. Past Medical History Hypertension Dyslipidemia Diabetes mellitus Hypothyroidism Past Surgical History Past Surgical Hx: no surgical history Family History Significant Family History: no pertinent family hx (noncontributory given advanced age) Social History Alcohol Use: none Smoking Status: Never smoker Drug Use: none Exam/Review of Systems Vital Signs Vitals Vital Signs Date Time Temp Pulse Resp B/P Pulse Ox O2 Delivery O2 Flow Rate FiO2 11/20/16 12:12 67 11/20/16 11:36 98.3 20 107/56 95 11/19/16 17:31 Room Air 11/19/16 13:00 2 Intake and Output 11/19/16 11/19/16 11/20/16 15:00 23:00 07:00 Intake Total 1200 ml Balance 1200 ml Exam Constitutional: alert, well developed Psych: nl mood/affect, no complaints Head: atraumatic, normocephalic Eyes: nl conjunctiva, nl lids ENMT: nl external ears & nose, nl nasal mucosa & septum Neck: non-tender, supple, No jvd Respiratory: clear to auscultation, normal air movement Cardiovascular: regular rate and rhythm Gastrointestinal: non-tender, soft Musculoskeletal: nl extremities to inspection Extremities: No clubbing, No cyanosis, No edema Neurological: nl mental status, nl speech Skin: nl turgor Results Result Diagram: 11/20/16 0550 11/20/16 0550 Results 24 hrs Laboratory Tests Test 11/19/16 18:11 11/19/16 18:26 11/19/16 22:29 11/20/16 00:45 Troponin I < 0.012 < 0.012 Bedside Glucose 204 206 Test 11/20/16 02:16 11/20/16 05:50 11/20/16 08:09 11/20/16 11:00 Bedside Glucose 170 273 H White Blood Count 7.7 # Red Blood Count 3.60 L Hemoglobin 11.5 L Hematocrit 33.4 L Mean Corpuscular Volume 92.8 Mean Corpuscular Hemoglobin 31.9 Mean Corpuscular Hemoglobin Concent 34.4 Red Cell Distribution Width 11.5 Platelet Count 265 Mean Platelet Volume 9.6 Neutrophils % 48.9 Lymphocytes % 43.3 Monocytes % 5.8 Eosinophils % 1.4 Basophils % 0.3 Nucleated Red Blood Cells % 0.0 Neutrophils # 3.8 Lymphocytes # 3.3 H Monocytes # 0.5 Eosinophils # 0.1 Basophils # 0.0 Nucleated Red Blood Cells # 0.0 Sodium Level 139 Potassium Level 4.3 Chloride Level 99 Carbon Dioxide Level 27 Anion Gap 17 H Blood Urea Nitrogen 22 H Creatinine 0.62 Glucose Level 215 # Hemoglobin A1c 12.4 H Calcium Level 8.5 Total Bilirubin 0.3 Direct Bilirubin 0.00 Indirect Bilirubin 0.3 Aspartate Amino Transf (AST/SGOT) 48 H Alanine Aminotransferase (ALT/SGPT) 45 Alkaline Phosphatase 138 H Total Protein 6.2 # Albumin 3.2 L Globulin 3.00 Albumin/Globulin Ratio 1.06 Triglycerides Level 230 H Cholesterol Level 145 LDL Cholesterol, Calculated 71 HDL Cholesterol 28 L Cholesterol/HDL Ratio 5.1 Thyroid Stimulating Hormone (TSH) 4.190 Free Thyroxine Index 3.14 Thyroxine (T4) 7.6 Triiodothyronine (T3) Uptake 41.3 H Urine Color YELLOW Urine Clarity CLOUDY A Urine pH 5.0 Urine Specific [place] 1.013 Urine Ketones TRACE A Urine Nitrite POSITIVE A Urine Bilirubin NEGATIVE Urine Urobilinogen NEGATIVE Urine Leukocyte Esterase 3+ H Urine Microscopic RBC 46 H Urine Microscopic WBC > 182 H Urine Squamous Epithelial Cells FEW Urine Bacteria MANY A Urine Mucus MODERATE Urine Yeast (Budding) FEW A Urine Hemoglobin 1+ H Urine Glucose 3+ H Urine Total Protein NEGATIVE Test 11/20/16 11:37 Bedside Glucose 264 H Medications Medications Current Medications Sodium Chloride (NS) 1,000 ml @ 80 mls/hr [id number] IV Last administered on 05:23; Admin Dose 80 MLS/HR; Start 11/19/16 at 17:31; Stop 11/20/16 at 18:30 Ondansetron HCl (Zofran Inj) 4 mg Q6H PRN IV NAUSEA AND/OR VOMITING; Start 11/19 at 18:00 Acetaminophen (Tylenol Tab) 650 mg Q6H PRN PO PAIN LEVEL 1-3 OR FEVER; Start at 18:00 Acetaminophen/ Hydrocodone Bitart ([place] (5/325)) 1 tab Q6H PRN PO PAIN LEVEL 7 -10 Last administered on 11/19/16 20:51; Admin Dose 1 TAB; Start 11/19/16 at 18: 00 Bisacodyl (Dulcolax) 5 mg DAILY PRN PO CONSTIPATION; Start 11/19/16 at 18:00 Diagnostic Test (Pha) (Accu-Chek) 1 ea 02 XX ; Start 11/20/16 at 02:00 Insulin Glargine (Lantus) 12 unit DAILY@08 SC Last administered on 11/20/16 08: 14; Admin Dose 12 UNIT; Start 11/20/16 at 08:00 Aspirin (Halfprin) 81 mg DAILY PO Last administered on 11/20/16 08:21; Admin Dose 81 MG; Start 11/20/16 at 09:00 Losartan Potassium (Cozaar) 50 mg DAILY PO Last administered on 11/20/16 08:21 ; Admin Dose 50 MG; Start 11/20/16 at 09:00 Atorvastatin Calcium (Lipitor) 10 mg QHS PO Last administered on 11/19/16 20:18 ; Admin Dose 10 MG; Start 11/19/16 at 21:00 Hydrochlorothiazide (Hydrochlorothiazide) 12.5 mg DAILY PO Last administered on 11/20/16 08:21; Admin Dose 12.5 MG; Start 11/20/16 at 09:00 Miscellaneous Information 1 ea NOTE XX ; Start 11/19/16 at 18:00 Glucose (Glutose) 15 gm Q15M PRN PO DECREASED GLUCOSE; Start 11/19/16 at 18:00 Glucose (Glutose) 22.5 gm Q15M PRN PO DECREASED GLUCOSE; Start 11/19/16 at 18:00 Dextrose (D50w Syringe) 25 ml Q15M PRN IV DECREASED GLUCOSE; Start 11/19/16 at 18:00 Dextrose (D50w Syringe) 50 ml Q15M PRN IV DECREASED GLUCOSE; Start 11/19/16 at 18:00 Glucagon (Glucagen) 1 mg Q15M PRN IM DECREASED GLUCOSE; Start 11/19/16 at 18:00 Glucose (Glutose) 15 gm Q15M PRN BUCCAL DECREASED GLUCOSE; Start 11/19/16 at 18: 00 CATRACHITA CHOI MD Nov 20, 2016 15:10
[2016-11-20] MEDS: ATORVASTATIN 10 MG TAB PO SCH (20:53)
[2016-11-21] VITALS (7 sets, daily range): BP systolic 121–143; BP diastolic 61–69; PULSE 67–80; RESP 20
[2016-11-21] MEDS: ACCU-CHEK XX SCH (02:00)
[2016-11-21] MEDS: LEVOTHYROXINE 50 MCG TAB PO SCH (05:43)
[2016-11-21] MEDS ORDERED: NOVO3I SC (08:08)
[2016-11-21] MEDS ORDERED: LANT3I SC (08:08)
--- NOTE | 2016-11-21 08:12 | PDOCDIS ---
Discharge Instructions CONDITION Patient Condition: Stable HOME CARE INSTRUCTIONS: Special Diet: CARB CONTROLLED FOLLOW UP/APPOINTMENTS Follow-up Plan Your diabetes is very poorly controlled so your pillls were stopped and instead you were started on insulin Please check your sugars 4 times daily (first thing in the morning and before each meal) and bring the results to your regular doctor within 7 days Please also discuss your chest discomfort with your regular doctor. Chen diabetes est muy mal controlada por lo que reji pldoras fueron detenidas y en chen lugar se inici en la insulina Por favor, revise reji azcares 4 veces al da (primera hora de la maana y antes de cada comida) y traiga los resultados a chen mdico habitual dentro de los 7 garsia Tambin discuta chen incomodidad en el pecho con chen mdico habitual. ANITA KENNEDY MD Nov 21, 2016 08:12
[2016-11-21] MEDS: ASPIRIN (EC) 81 MG TAB PO SCH (08:41)
[2016-11-21] MEDS: LOSARTAN 50 MG TAB PO SCH (08:41)
[2016-11-21] MEDS: HYDROCHLOROTHIAZIDE 12.5 MG CAP PO SCH (08:42)
[2016-11-21] MEDS: INSULIN ASPART [NOVOLOG] 3 ML PEN SC SCH ×4 (08:46→13:28)
[2016-11-21] MEDS: INSULIN GLARGINE [LANtus] 3 ML PEN SC SCH (08:53)
[2016-11-21] MEDS ORDERED: METF500T4 PO (09:28)
[2016-11-21] MEDS ORDERED: GLIM2TAB PO (09:28)
--- NOTE | 2016-11-21 09:37 | PDOCDIS ---
Discharge Instructions CONDITION Patient Condition: Stable HOME CARE INSTRUCTIONS: Special Diet: CARB CONTROLLED FOLLOW UP/APPOINTMENTS Follow-up Plan Take the new higher doses of your diabetes medicine and use the diabetes testing supplies to check your blood sugar twice daily (before breakfast and before your biggest meal of the day) Bring those results to your regular doctor Please discuss your chest discomfort with your medical doctor [place] las nuevas dosis ms altas de chen medicamento para la diabetes y use los suministros de pruebas de diabetes para controlar chen nivel de azcar en la maty dos veces al da (antes del desayuno y antes de chen comida ms minh del da) Traiga los resultados a chen mdico habitual Por favor, discuta chen malestar en el pecho con chen mdico REFERRALS Agency Name and Phone Number: [facility] [phone] ANITA KENNEDY MD Nov 21, 2016 09:37
--- NOTE | 2016-11-21 09:40 | DS ---
Date/Time of Note Date/Time of Note DATE: 11/21/16 TIME: 09:38 Discharge Summary Admission/Discharge Info Admit Date/Time Nov 19, 2016 at 15:55 Discharge Date/Time Discharge Diagnosis chest pain, hyperglycemia Patient Condition: Stable Consults cardiology Procedures a1c 12.4 TTE 8.6 Conclusions 1. The left ventricle is normal in size and systolic function. 2. Estimated left ventricular ejection fraction of 65-70%. 3. Grade 1 diastolic dysfunction. Hx of Present Illness Patient is a 81-year-old female, history is obtained with the help of her daughter who is at bedside. Patient presents to the ED with the original complaint of exertional angina, however after speaking with the patient and the patient's daughter at length, there are multiple complaints. Patient states that over the past week or 2 there have been moments of temporary shortness of breath that are mild with chest pain that are shortly followed by a dizzy sensation. When asked how many times this happens, the patient is unsure but states that it happens 2-3 times a day in the past week. Currently the patient does not have any chest pain, dizziness, shortness of breath, nausea, vomiting, diarrhea. Patient also denies any bowel or bladder dysfunction or altered mental status. She also states that she has not been taking her diabetes medication recently because she does not feel well. Patient has no issues ambulating and is normally in fairly good health and sees a family doctor on a normal basis. PMH: Hypertension, dyslipidemia, diabetes mellitus type 2, cataracts, hypothyroidism PSH: None Social: Denies smoking, alcohol, recreational drugs Meds: Losartan 50 mg, simvastatin 10 mg, aspirin 81 mg, hydrochlorothiazide 12.5 mg, glimepiride 2 mg daily, levothyroxine 50 mcg, metformin 500 mg twice daily Hospital Course Pt admitted for chest pain. Ruled out for ACS with serial troponins. Pt seen by cardiology, no compelling indication for inpatient stress test. Pt also with very poor diabetes control. Reports medication adherence but per discussion with family has not been adhering to diabetic diet. I advised insulin which pt and her son refused. Instead PO meds were uptitrated. Pt given glucometer/DM testing supplies to use at home and is to follow up with PCP for stress test evaluation Home Meds Reported Medications Calc/D3/Mag/Zn/Creel Clerk/Vish/Shields (Calcium 600 + Vit D) 1 Each Tablet, 1 TAB PO BID , TAB 11/19/16 Hydrochlorothiazide* (Hydrochlorothiazide*) 12.5 Mg Tablet, 12.5 MG PO DAILY, # 30 TAB 11/19/16 Glimepiride* (Glimepiride*) 2 Mg Tablet, 2 MG PO WITH BREAKFAST, TAB 11/19/16 Aspirin* (Aspirin* EC) 81 Mg Tablet.dr, 81 MG PO DAILY, TAB 11/19/16 Simvastatin* (Zocor*) 10 Mg Tablet, 10 MG PO QHS, #30 TAB 11/19/16 Metformin Hcl* (Metformin Hcl*) 500 Mg Tablet, 500 MG PO WITH BREAKFAST DINNE, # 60 TAB 11/19/16 Losartan Potassium* (Losartan Potassium*) 50 Mg Tablet, 50 MG PO DAILY, TAB 11/19/16 Levothyroxine Sodium* (Levothyroxine Sodium*) 50 Mcg Tablet, 50 MCG PO BEFORE BREAKFAST, #30 TAB 11/19/16 Discontinued Reported Medications Acetaminophen* (Tylenol*) 500 Mg Tab, 500 MG PO Q4H Y for MILD PAIN LEVEL 1-3, TAB 10/23/13 Losartan Potassium* (Losartan Potassium*) 50 Mg Tablet, 50 MG PO DAILY, TAB 10/23/13 Metformin* (Glucophage*) 1,000 Mg Tablet, 1000 MG PO BID 04/08/12 Gabapentin* (Gabapentin*) 100 Mg Capsule, 100 MG PO BID 04/08/12 Simvastatin (Simvastatin) 10 Mg Tablet, 10 MG PO 12/19/11 Levothyroxine Sodium (Levothroid) 50 Mcg Tablet 08/03/09 Discontinued Scripts Benzonatate* (Tessalon Perle*) 100 Mg Capsule, 100 MG PO Q8H Y for COUGH for 14 Days, CAP Prov:SAM SALMERON PA-C 05/11/16 Azithromycin* (Zithromax*) 250 Mg Tablet, 250 MG PO .SANDRA DIRECTED, #6 TAB TAKE 500 MG (2 TABS) THE FIRST DAY THEN 250 MG (1 TAB) DAYS 2-5 Prov:SAM SALMERON PA-C 05/11/16 Erythromycin (Erythromycin Opth) 3.5 Gm Oint..gm., 1 APPLIC RIGHT EYE QID for 7 Days, #1 TUB Prov:KRISTAN LEONARD MD 10/24/15 Acetaminophen-Codeine* (Acetaminophen-Cod #3*) 300-30 Mg Tab, 1 TAB PO Q4H Y for PAIN, #12 TAB Prov:KRISTAN LEONARD MD 10/24/15 Tramadol HCl (Tramadol HCl) 50 Mg Tablet, 50 MG PO Q4 Y for PAIN, #20 TAB Prov:KRISTAN LEONARD MD 10/18/15 Gentamicin Sulfate* (Gentamicin Sulfate* Ophth) 0.3% - 5 Ml Drops, 1 DROP RIGHT EYE Q4 for 7 Days, EA Prov:KRISTAN LEONARD MD 10/18/15 Oseltamivir Phosphate* (Tamiflu*) 75 Mg Capsule, 75 MG PO BID for 5 Days, CAP Prov:RICH FLOR MD 02/05/15 Albuterol Sulfate* (Albuterol Sulfate* HFA) 8.5 Gm Hfa.aer.ad, 1-2 PUFF INH Q4 Y for SHORTNESS OF BREATH, #1 EA Prov:RICH FLOR MD 02/05/15 Ibuprofen* (Ibuprofen*) 600 Mg Tablet, 400 MG PO TID for PAIN, #30 TAB Prov:RICH FLOR MD 02/05/15 Follow-up Plan PCP within 2 days for DM follow up and possible stress test Primary Care Provider [address] [place] [address] Time spent on discharge: > 30 minutes Pending Labs Laboratory Tests Test 11/20/16 11:00 11/20/16 11:37 11/20/16 17:07 11/20/16 20:50 Urine Color YELLOW (YELLOW) Urine Clarity CLOUDY (CLEAR) Urine pH 5.0 (5.0-9.0) Urine Specific [place] 1.013 (1.003-1.030) Urine Ketones TRACEmg/dL (NEGATIVE) Urine Nitrite POSITIVEmg/dL (NEGATIVE) Urine Bilirubin NEGATIVEmg/dL (NEGATIVE) Urine Urobilinogen NEGATIVEmg/dL (NEGATIVE) Urine Leukocyte Esterase 3+Elliot/ul (NEGATIVE) Urine Microscopic RBC 46/HPF (0-5) Urine Microscopic WBC > 182/HPF (0-5) Urine Squamous Epithelial Cells FEW/HPF (FEW) Urine Bacteria MANY/HPF (NONE SEEN) Urine Mucus MODERATE/HPF (NONE SEEN) Urine Yeast (Budding) FEW/HPF (NONE SEEN) Urine Hemoglobin 1+mg/dL (NEGATIVE) Urine Glucose 3+mg/dL (NEGATIVE) Urine Total Protein NEGATIVEmg/dl (NEGATIVE) Bedside Glucose 264mg/dL (70-220) 263mg/dL (70-220) 244mg/dL (70-220) Test 11/21/16 08:30 Bedside Glucose 204mg/dL (70-220) ANITA KENNEDY MD Nov 21, 2016 09:40
== END 2016-11-21 15:20 | disposition home or self-care (01) | DRG 313 ==
LOC: E/R 11:42 → MS4 15:55
PROVIDERS: ADMIT Internal Medicine; ATTEND Internal Medicine
DX: R07.9 Chest pain, unspecified (principal); E11.65 Type 2 diabetes mellitus with hyperglycemia; I10 Essential (primary) hypertension; E78.5 Hyperlipidemia, unspecified; E03.9 Hypothyroidism, unspecified; R42 Dizziness and giddiness; R53.1 Weakness; Z88.0 Allergy status to penicillin; Z91.14 Patient's other noncompliance with medication regimen
CPT/HCPCS: 36415; 71010; 80053; 80061; 81001; 82962; 83036; 83880; 84436; 84443; 84479; 84484; 85025; 93005; 93306; 96372; 97110; 97116; 97162; 97166; 97530; J1815; J7030

== ENCOUNTER 2017-06-21 20:24 | Emergency (ER) | END 2017-06-22 02:00 | disposition home or self-care (01) ==